=== PATIENT | male | born 1990 | race Caucasian/White ===

== ENCOUNTER 2017-02-25 02:03 | Inpatient (IN) | payer SELFPAY ==
[2017-02-25] VITALS (7 sets, daily range): BP systolic 104–151; BP diastolic 63–100; PULSE 67–93; RESP 12–20; TEMP 97–97.8; O2SAT 96–100
[~2017-02-25] VITALS: Ht 180.3 cm; Wt 67.4 kg
[~2017-02-25 02:03] MED LIST: ZOFR4TAB3 SL
[2017-02-25] MEDS ORDERED: ONDANSETRON HCL 4 MG/2 ML VIAL IVP ONE (02:45)
[2017-02-25] MEDS ORDERED: SODIUM CHLORIDE 0.9% FLUSH 10 ML FLUSH IV FLUSH PRN ×2 (02:45→04:30)
[2017-02-25] MEDS ORDERED: HYDROmorphone HCL PF 1 MG/ML VIAL IVS ONE (02:45)
[2017-02-25] MEDS: SODIUM CHLOR 0.9% 1000 ML INJ 1,000 ML IV SCH ×2 (02:48→03:50)
[2017-02-25 03:01] LABS: AUTOMATED NEUTROPHIL # 22.1 TH/MM3 (1.8-7.7); BASOPHIL # 0.6 TH/MM3 (0-0.2); BASOPHIL % 2.2 % (0.0-2.0); EOSINOPHIL # 0.1 TH/MM3 (0-0.4); EOSINOPHIL % 0.5 % (0.0-4.0); HEMATOCRIT 51.7 % (39.0-51.0); LYMPH % 14.1 % (9.0-44.0); LYMPHOCYTE # 3.9 TH/MM3 (1.0-4.8); MEAN CELL VOLUME 90.6 FL (80.0-100.0); MEAN CORPUSCULAR HEMOGLOBIN 30.6 PG (27.0-34.0); MEAN CORPUSCULAR HGB CONC 33.8 % (32.0-36.0); MONO % 2.7 % (0.0-8.0); NEUT % 80.5 % (16.0-70.0); PLATELET COUNT 294 TH/MM3 (150-450); RED BLOOD COUNT 5.71 MIL/MM3 (4.50-5.90); RED CELL DISTRIBUTION WIDTH 12.4 % (11.6-17.2); WHITE BLOOD COUNT 27.4 TH/MM3 (4.0-11.0)
[2017-02-25 03:06] LABS: HEMO FLAGS DIFF FINAL
[2017-02-25 03:10] LABS: CHLORIDE 103 MEQ/L (98-107); POTASSIUM 3.6 MEQ/L (3.5-5.1); SODIUM (NA) 139 MEQ/L (136-145)
[2017-02-25 03:14] LABS: ANION GAP 15 MEQ/L (5-15); BICARBONATE 20.7 MEQ/L (21.0-32.0); BLOOD UREA NITROGEN 13 MG/DL (7-18)
[2017-02-25 03:17] LABS: ALT (GPT) 108 U/L (12-78); AST (GOT) 28 U/L (15-37); GLOMERULAR FILTRATION RATE 80 ML/MIN (>89)
[2017-02-25 03:19] LABS: TOTAL BILIRUBIN ADULT 0.7 MG/DL (0.2-1.0)
[2017-02-25 03:20] LABS: ALKALINE PHOSPHATASE 74 U/L (45-117)
[2017-02-25] MEDS ORDERED: IOHEXOL 350 MG/ML 10 ML VIAL (for RAD DIAG) IVCONTRAST ONE (03:30)
--- NOTE | 2017-02-25 04:10 | PD ---
HPI Chief Complaint: GI Complaint Time Seen by Provider: 02:38 Travel History International Travel<30 days: No Contact w/Intl Traveler<30days: No Traveled to known affect area: No History of Present Illness HPI The patient is a 26-year-old male that complains of a headache and vomiting for 4 hours. The headache is biparietal and of gradual onset. The patient denies vomiting any blood. He does have a history of gastritis. He does drink alcohol and he discontinued the alcohol at 4 PM. He denies any fever. He denies any diarrhea 10 PM is when the headache and vomiting started. [facility] Past Medical History Diminished Hearing: No Immunizations Current: Yes Migraines: Yes Past Surgical History Abdominal Surgery: Yes (RIGHT INGUINAL HERNIA REPAIR AGE 4) Social History Alcohol Use: Yes (occasional) Tobacco Use: Yes (1/2 ppd) Substance Use: No Allergies-Medications (Allergen,Severity, Reaction): Coded Allergies: isosorbide (Unverified Allergy, Severe, HIVES, 02/25/17) nitroglycerin (Unverified Allergy, Severe, HIVES, 02/25/17) nitroprusside sodium (Unverified Allergy, Severe, HIVES, 02/25/17) Reported Meds & Prescriptions Reported Meds & Active Scripts Active Review of Systems Except as stated in HPI: all other systems reviewed are Neg Physical Exam Narrative GENERAL: The patient appears slightly dehydrated in moderate to severe distress with his abdominal discomfort in the bilateral lower quadrants. His vital signs show pulse of 93 and blood pressure 143/100 but otherwise are normal. SKIN: Focused skin assessment warm/dry. HEAD: Atraumatic. Normocephalic. EYES: Pupils equal and round. No scleral icterus. No injection or drainage. ENT: No nasal bleeding or discharge. Mucous membranes pink and moist. NECK: Trachea midline. No JVD. CARDIOVASCULAR: Regular rate and rhythm. No murmur appreciated. RESPIRATORY: No accessory muscle use. Clear to auscultation. Breath sounds equal bilaterally. GASTROINTESTINAL: Abdomen shows slight guarding in the bilateral lower quadrants , with exquisite tenderness to direct palpation in the bilateral lower quadrants , nondistended. Hepatic and splenic margins not palpable. No rebound is present. MUSCULOSKELETAL: No obvious deformities. No clubbing. No cyanosis. No edema. NEUROLOGICAL: Awake and alert. No obvious cranial nerve deficits. Motor grossly within normal limits. Normal speech. PSYCHIATRIC: Appropriate mood and affect; insight and judgment normal. Data Data Last Documented VS Vital Signs Date Time Temp Pulse Resp B/P (MAP) Pulse Ox O2 Delivery O2 Flow Rate FiO2 02/25/17 03:20 67 16 107/67 (80) 96 Room Air 02/25/17 02:12 97.8 Orders Orders Complete Blood Count With Diff (02/25/17 02:38) Comprehensive Metabolic Panel (02/25/17 02:38) Lipase (02/25/17 02:38) Urinalysis - C+S If Indicated (02/25/17 02:38) Ct Abd/Pel W Iv Contrast(Rout) (02/25/17 02:38) Iv Access Insert/Monitor (02/25/17 02:38) Ecg Monitoring (02/25/17 02:38) Oximetry (02/25/17 02:38) Ondansetron Inj (Zofran Inj) (02/25/17 02:45) Sodium Chloride 0.9% Flush (Ns Flush) (02/25/17 02:45) Hydromorphone Pf Inj (Dilaudid Pf Inj) (02/25/17 02:45) Sodium Chlor 0.9% 1000 Ml Inj (Ns 1000 M (02/25/17 02:45) Iohexol 350 Inj (Omnipaque 350 Inj) (02/25/17 03:30) Sodium Chlor 0.9% 1000 Ml Inj (Ns 1000 M (02/25/17 04:30) Labs Laboratory Tests Test 02/25/17 02:30 White Blood Count 27.4 TH/MM3 Red Blood Count 5.71 MIL/MM3 Hemoglobin 17.5 GM/DL Hematocrit 51.7 % Mean Corpuscular Volume 90.6 FL Mean Corpuscular Hemoglobin 30.6 PG Mean Corpuscular Hemoglobin Concent 33.8 % Red Cell Distribution Width 12.4 % Platelet Count 294 TH/MM3 Mean Platelet Volume 9.9 FL Neutrophils (%) (Auto) 80.5 % Lymphocytes (%) (Auto) 14.1 % Monocytes (%) (Auto) 2.7 % Eosinophils (%) (Auto) 0.5 % Basophils (%) (Auto) 2.2 % Neutrophils # (Auto) 22.1 TH/MM3 Lymphocytes # (Auto) 3.9 TH/MM3 Monocytes # (Auto) 0.7 TH/MM3 Eosinophils # (Auto) 0.1 TH/MM3 Basophils # (Auto) 0.6 TH/MM3 CBC Comment DIFF FINAL Differential Comment Blood Urea Nitrogen 13 MG/DL Creatinine 1.10 MG/DL Random Glucose 122 MG/DL Total Protein 8.5 GM/DL Albumin 4.5 GM/DL Calcium Level 9.5 MG/DL Alkaline Phosphatase 74 U/L Aspartate Amino Transf (AST/SGOT) 28 U/L Alanine Aminotransferase (ALT/SGPT) 108 U/L Total Bilirubin 0.7 MG/DL Sodium Level 139 MEQ/L Potassium Level 3.6 MEQ/L Chloride Level 103 MEQ/L Carbon Dioxide Level 20.7 MEQ/L Anion Gap 15 MEQ/L Estimat Glomerular Filtration Rate 80 ML/MIN Lipase 104 U/L [facility] Medical Decision Making Medical Screen Exam Complete: Yes Emergency Medical Condition: Yes Medical Record Reviewed: Yes Interpretation(s) The CBC shows a white count of 27,400 with hemoglobin of 17.5 and hematocrit of 51.7-apparent hemoconcentration, neutrophils of 81%. The complete metabolic profile shows a GFR of 80, bicarbonate 21 7, ALT of 108 and total protein of 8.5 but is otherwise normal. The lipase is normal. The CT abdomen/pelvis showed a portion of the transverse colon which the radiologist felt was artifactually thicker because it was not well distended. The radiologist felt this was a normal examination. There is no comment about the appendix initially and I called Dr. Sellers who reviewed the CT again Differential Diagnosis Acute appendicitis, colitis, ruptured appendicitis, diverticulitis, electrolyte disorder, dehydration, intractable pain, intractable vomiting Narrative Course The patient has intractable abdominal pain and vomiting. He does appear dehydrated which is reflected in his apparent hemoconcentration with a hemoglobin and hematocrit. His white count is elevated over 27,000. Plan: The patient will be admitted to Dr. Boucher, I discussed the patient with her. Diagnosis Primary Impression: Intractable abdominal pain Additional Impression: Intractable vomiting with nausea Admitting Information Admitting Physician Requests: Sebastian Young MD Feb 25, 2017 04:10
--- NOTE | 2017-02-25 04:15 | RADRPT ---
EXAM DATE/TIME: 02/25/2017 03:27 This report includes an Addendum and supersedes previous reports for this exam. [facility] COMPARISON: No previous studies available for comparison. INDICATIONS : Nausea and vomiting for 4 hours IV CONTRAST: 96 cc Omnipaque 350 (iohexol) IV ORAL CONTRAST: No oral contrast ingested. RADIATION DOSE: 4.34 CTDIvol (mGy) MEDICAL HISTORY : Hernia, inguinal. SURGICAL HISTORY : Inguinal hernia repair. ENCOUNTER: Initial ACUITY: 1 day PAIN SCALE: 10/10 LOCATION: middle abdomen TECHNIQUE: Volumetric scanning of the abdomen and pelvis was performed. Using automated exposure control and ad justment of the mA and/or kV according to patient size, radiation dose was kept as low as reasonably achievable to obtain optimal diagnostic quality images. DICOM format image data is available electro nically for review and comparison. FINDINGS: LOWER LUNGS: The visualized lower lungs are clear. LIVER: Homogeneous density without lesion. There is no dilation of the biliary tree. No calcified gallston es. SPLEEN: Normal size without lesion. PANCREAS: Within normal limits. KIDNEYS: Normal in size and shape. There is no mass, stone or hydronephrosis. ADRENAL GLANDS: Within normal limits. VASCULAR: There is no aortic aneurysm. BOWEL/MESENTERY: The stomach, small bowel, and colon demonstrate no acute abnormality. There is no free intraperitone al air or fluid. ABDOMINAL WALL: Within normal limits. RETROPERITONEUM: There is no lymphadenopathy. BLADDER: No wall thickening or mass. REPRODUCTIVE: Within normal limits. INGUINAL: There is no lymphadenopathy or hernia. MUSCULOSKELETAL: Within normal limits for patient age. CONCLUSION: Normal examination. At times a portion of the transverse colon is not well-distended making the wall appear slightly thicker without any definite surrounding inflammation. Nash Sellers MD on February 25, 2017 at 4:12 Board Certified Radiologist. This report was verified electronically. ADDENDUM: The appendix is identified and is normal. Nash Sellres MD on February 25, 2017 at 4:27 Board Certified Radiologist. This report was verified electronically.
[2017-02-25] MEDS ORDERED: MAGNESIUM HYDROXIDE SUSP 30 ML CUP PO PRN (04:30)
[2017-02-25] MEDS ORDERED: ACETAMINOPHEN 325 MG TAB PO PRN (04:30)
[2017-02-25] MEDS ORDERED: LACTULOSE SYRUP 20 GM/30 ML CUP PO PRN (04:30)
[2017-02-25] MEDS ORDERED: ACETAMINOPHEN/HYDROcodone 325 MG/5 MG TAB PO PRN (04:30)
[2017-02-25] MEDS ORDERED: HYDROmorphone HCL PF 1 MG/ML VIAL IV PUSH PRN (04:30)
[2017-02-25] MEDS ORDERED: SENNOSIDES 8.6 MG TAB PO PRN (04:30)
[2017-02-25] MEDS ORDERED: BISACODYL 10 MG SUPP RECTAL PRN (04:30)
[2017-02-25] MEDS ORDERED: ONDANSETRON HCL 4 MG/2 ML VIAL IVP PRN (04:30)
[2017-02-25] MEDS ORDERED: SODIUM CHLOR 0.9% 1000 ML INJ 1,000 ML IV SCH ×2 (04:30)
[2017-02-25 04:44] LABS: BLOOD, URINE NEG (NEG); GLUCOSE,URINE NEG (NEG); KETONE, URINE 15 mg/dL (NEG); NITRITE,URINE NEG (NEG)
[2017-02-25 04:55] LABS: COMMENT (UR) CULT NOT INDICATED; CULTURE IF INDICATED CULT NOT INDICATED; SQUAMOUS EPITHELIAL CELL URINE 0-5 /hpf (0-5); URINE COLOR YELLOW (YELLW/STRAW); WBC, URINE 0-2 /hpf (0-5)
[2017-02-25] MEDS ORDERED: metroNIDAZOLE 500 MG INJ 100 ML IV SCH (05:00)
[2017-02-25] MEDS ORDERED: CIPROFLOXACIN 400 MG PREMIX 200 ML IV SCH (05:00)
[2017-02-25] MEDS ORDERED: PANTOPRAZOLE SODIUM 40 MG VIAL IV PUSH SCH (06:00)
[2017-02-25] MEDS ORDERED: DOCUSATE SODIUM 50 MG/SENNA 8.6 MG TAB PO SCH (09:00)
[2017-02-25] MEDS ORDERED: SODIUM CHLORIDE 0.9% FLUSH 10 ML FLUSH IV FLUSH SCH (09:00)
== END 2017-02-25 09:30 | disposition left against medical advice (07) | DRG 641 ==
LOC: PHED 02:03 → PHEDA 04:35 → PH5A 06:02
PROVIDERS: ADMIT Internal Medicine; ATTEND Internal Medicine
DX: E86.0 Dehydration (principal); F17.210 Nicotine dependence, cigarettes, uncomplicated; G43.909 Migraine, unspecified, not intractable, without status migrainosus; R11.2 Nausea with vomiting, unspecified; R10.9 Unspecified abdominal pain
CPT/HCPCS: 74177; 80053; 81001; 83690; 85025; 96361; 96374; 96375; C9113; J0744; J1170; J2405; J7030; Q9967

== ENCOUNTER 2017-05-19 03:51 | Emergency (ER) | payer SELFPAY ==
[~2017-05-19] VITALS: Ht 170.2 cm; Wt 70.0 kg
[2017-05-19 04:08] VITALS: BP 146/101; PULSE 90; RESP 18; TEMP 98.6; O2SAT 99
--- NOTE | 2017-05-19 04:12 | PD ---
HPI Chief Complaint: Alcohol/Drug Intoxication Time Seen by Provider: 04:07 Travel History International Travel<30 days: No Contact w/Intl Traveler<30days: No Traveled to known affect area: No History of Present Illness HPI 26-year-old male patient presents to the ER today brought in by PD as a Marchman act, apparently was found propping himself around a pole, initially unresponsive, and eventually was arousable. He admits he has been drinking. He denies any other ingestions. He denies any suicidal or homicidal ideation. Modifying Factors: None Associated Signs & Symptoms: Marchman act, alcohol ingestion Risk Factors: None PFSH Past Medical History Diminished Hearing: No Immunizations Current: Yes Migraines: Yes Past Surgical History Abdominal Surgery: Yes (RIGHT INGUINAL HERNIA REPAIR AGE 4) Social History Alcohol Use: Yes (occasional) Tobacco Use: Yes (1/2 ppd) Substance Use: No Allergies-Medications (Allergen,Severity, Reaction): Coded Allergies: isosorbide (Unverified Allergy, Severe, HIVES, 05/19/17) nitroglycerin (Unverified Allergy, Severe, HIVES, 05/19/17) nitroprusside sodium (Unverified Allergy, Severe, HIVES, 05/19/17) Reported Meds & Prescriptions Reported Meds & Active Scripts Active No Active Prescriptions or Reported Medications Review of Systems Except as stated in HPI: all other systems reviewed are Neg Physical Exam Narrative GENERAL: Well-developed young white male patient currently in mild distress. Awake, alert, oriented 3. Slurred speech, mildly agitated. SKIN: Focused skin assessment warm/dry. HEAD: Atraumatic. Normocephalic. EYES: Pupils equal and round. No scleral icterus. No injection or drainage. ENT: No nasal bleeding or discharge. Mucous membranes pink and moist. NECK: Trachea midline. No JVD. CARDIOVASCULAR: Regular rate and rhythm. No murmur appreciated. RESPIRATORY: No accessory muscle use. Clear to auscultation. Breath sounds equal bilaterally. GASTROINTESTINAL: Abdomen soft, non-tender, nondistended. Hepatic and splenic margins not palpable. MUSCULOSKELETAL: No obvious deformities. No clubbing. No cyanosis. No edema. NEUROLOGICAL: Awake and alert. No obvious cranial nerve deficits. Motor grossly within normal limits. Slurred speech. PSYCHIATRIC: Mildly agitated mood and affect; insight and judgment poor. Data Data Last Documented VS Vital Signs Date Time Temp Pulse Resp B/P (MAP) Pulse Ox O2 Delivery O2 Flow Rate FiO2 05/19/17 04:08 98.6 90 18 146/101 (116) 99 Orders MDM Medical Decision Making Medical Screen Exam Complete: Yes Emergency Medical Condition: Yes Medical Record Reviewed: Yes Differential Diagnosis Alcohol intoxication versus substance use Narrative Course Patient denies any homicidal or suicidal ideation. He is awake and alert in the ER. He is ambulatory. He called his sister who is coming to pick him up. At this point, my plan would be to release him with sister. He should avoid heavy alcohol use, and substance use. Return for new issues as needed. The plan was discussed with him and he states understanding. Diagnosis Primary Impression: Alcohol intoxication Scripts No Active Prescriptions or Reported Meds Disposition: 01 DISCHARGE HOME Condition: Stable Maci Pickard MD May 19, 2017 04:12
== END 2017-05-19 04:49 | disposition home or self-care (01) ==
LOC: NEPE 03:51
DX: F10.129 Alcohol abuse with intoxication, unspecified (principal); Z72.0 Tobacco use
CPT/HCPCS: 99283